=== PATIENT | female | born 1960 | race Caucasian/White ===

== ENCOUNTER 2022-02-23 10:45 | Observation (INO) | payer OTHER ==
[2022-02-23] MEDS ORDERED: Sodium Chloride 0.9% 10 ML Syringe FLUSH PRN (10:53)
[2022-02-23] MEDS ORDERED: Ondansetron 4 MG/2 ML SDV IV PRN (10:53)
[2022-02-23] MEDS ORDERED: Acetaminophen/oxyCODONE 325-5 MG Tab PO PRN (10:53)
[2022-02-23] MEDS ORDERED: Ondansetron 4 MG Tab.DIS PO PRN (10:53)
[2022-02-23] MEDS ORDERED: HYDROmorphone 0.5 MG/0.5 ML Syringe IVPUSH PRN (10:53)
[2022-02-23] MEDS ORDERED: Ketorolac 30 MG/ML SDV IVPUSH PRN (10:53)
[2022-02-23] MEDS: Tamsulosin 0.4 MG Cap.ER PO SCH (12:35)
[2022-02-23] MEDS: Sodium Chloride 0.9% 1,000 ML IV SCH ×2 (12:35→18:26)
[2022-02-24] MEDS: Sodium Chloride 0.9% 1,000 ML IV SCH ×2 (01:10→07:38)
[2022-02-24 07:06] LABS: ANION GAP 9.1 mmol/L (5-15)
[2022-02-24] MEDS: Tamsulosin 0.4 MG Cap.ER PO SCH (08:09)
[2022-02-24 09:53] VITALS: BP 145/74; PULSE 74
== END 2022-02-24 13:08 | disposition home or self-care (01) ==
LOC: VM.MS 10:47
PROVIDERS: ADMIT Nurse Practitioner Family; ATTEND Nurse Practitioner Family
DX: N20.0 Calculus of kidney (principal); R10.9 Unspecified abdominal pain; I10 Essential (primary) hypertension; F41.9 Anxiety disorder, unspecified; D50.9 Iron deficiency anemia, unspecified; I72.2 Aneurysm of renal artery; Z79.899 Other long term (current) drug therapy; Z98.890 Other specified postprocedural states
CPT/HCPCS: 36415; 80053; 85027; 96361; 96374; A9270-GY; G0378; G0379; J1885; J7030

== ENCOUNTER 2022-08-05 07:38 | Day surgery (SDC) | payer OTHER ==
[~2022-08-05 07:38] MED LIST: Lactated Ringers 1,000 ML IV SCH; Sodium Chloride 0.9% 10 ML Syringe FLUSH PRN
[2022-08-05] MEDS ORDERED: Propofol 200 MG/20 ML SDV ONE (10:16)
[2022-08-05] MEDS ORDERED: fentaNYL 100 MCG/2 ML SDV ONE (10:16)
[2022-08-05 11:44] VITALS: BP 157/78; PULSE 65
== END 2022-08-05 12:35 | disposition home or self-care (01) ==
LOC: VM.SDS 07:38
PROVIDERS: ATTEND Family Medicine
DX: Z12.11 Encounter for screening for malignant neoplasm of colon (principal); K63.5 Polyp of colon; K57.30 Diverticulosis of large intestine without perforation or abscess without bleeding; K63.89 Other specified diseases of intestine; D50.9 Iron deficiency anemia, unspecified; F41.9 Anxiety disorder, unspecified; I10 Essential (primary) hypertension; K21.9 Gastro-esophageal reflux disease without esophagitis; I72.2 Aneurysm of renal artery; E66.9 Obesity, unspecified; Z90.710 Acquired absence of both cervix and uterus; Z87.19 Personal history of other diseases of the digestive system; Z83.79 Family history of other diseases of the digestive system; Z98.890 Other specified postprocedural states; Z79.899 Other long term (current) drug therapy; Z68.31 Body mass index [BMI] 31.0-31.9, adult
CPT/HCPCS: 00812; J2704; J3010; J7120

== ENCOUNTER 2023-06-14 12:26 | Emergency (ER) | payer OTHER ==
[2023-06-14 12:52] LABS: BASOPHILS PERCENT AUTO 0.5 % (0.2-1.2); EOSINOPHILS ABSOLUTE AUTO 0.1 x10^3/uL (0.0-0.5); HEMATOCRIT 46.5 % (33.0-47.0); IMMATURE GRAN ABSOLUTE AUTO 0.01 x10^3/uL (0.00-0.07); LYMPHOCYTES ABSOLUTE AUTO 1.8 x10^3/uL (1.0-4.8); LYMPHOCYTES PERCENT AUTO 31.7 % (25.0-50.0); MEAN CORPUSCULAR HEMOGLOBIN 32.1 pg (26.0-32.0); MEAN CORPUSCULAR HGB CONC 34.4 g/dL (32.0-36.0); MEAN CORPUSCULAR VOLUME 93.2 fL (78.0-93.0); MONOCYTES ABSOLUTE AUTO 0.7 x10^3/uL (0.0-0.8); MONOCYTES PERCENT AUTO 11.5 % (2.0-11.0); NEUTROPHILS ABSOLUTE AUTO 3.1 x10^3/uL (1.8-7.7); NEUTROPHILS PERCENT AUTO 54.1 % (50.0-80.0); PLATELET COUNT,PLT 215 x10^3/uL (130-400); RED BLOOD CELL COUNT 4.99 x10^6/uL (4.00-5.50); WHITE BLOOD CELL COUNT,WBC 5.6 x10^3/uL (4.0-10.0)
[2023-06-14 13:14] LABS: A/G RATIO 1.03; ALANINE AMINOTRANSFERASE,ALT 21 U/L (14-59); ALBUMIN 3.9 g/dL (3.4-5.0); ALKALINE PHOSPHATASE 118 U/L (46-116); ASPARTATE AMNIOTRANSFERASE,AST 22 U/L (15-37); BILIRUBIN TOTAL 0.6 mg/dL (0.2-1.0); BLOOD UREA NITROGEN,BUN 15 mg/dL (7-18); CALCIUM 9.5 mg/dL (8.5-10.1); CARBON DIOXIDE,CO2 27 mmol/L (21-32); CHLORIDE,CL 102 mmol/L (98-107); CREATININE 0.7 mg/dL (0.55-1.02); GLUCOSE RANDOM 97 mg/dL (70-99); POTASSIUM,K 3.4 mmol/L (3.5-5.1); PROTEIN TOTAL,TP 7.7 g/dL (6.4-8.2); SODIUM,NA 141 mmol/L (136-145)
[2023-06-14 13:15] LABS: ANION GAP 15.4 mmol/L (5-15); ESTIMATED GFR 98 mL/min (>=60)
[2023-06-14] MEDS: Ketorolac 30 MG/ML SDV IM ONE (15:12)
[2023-06-14] MEDS: Cyclobenzaprine 10 MG Tab PO ONE (15:13)
[2023-06-14 15:28] LABS: APPEARANCE,URINE CLEAR (CLEAR); BILIRUBIN,URINE NEGATIVE (NEGATIVE); COLOR,URINE YELLOW (YELLOW); GLUCOSE,URINE NEGATIVE (NEGATIVE); KETONES,URINE NEGATIVE (NEGATIVE); LEUKOCYTE ESTERASE,URINE NEGATIVE (NEGATIVE); NITRITE,URINE NEGATIVE (NEGATIVE); OCCULT BLOOD,URINE SMALL (NEGATIVE); PH,URINE 7.5 (5.0-8.0); PROTEIN,URINE NEGATIVE (NEGATIVE); UROBILINOGEN,URINE 0.2 EU/dL (0.2)
[2023-06-14 15:42] LABS: BACTERIA,URINE RARE /HPF (NOT SEEN); RBC,URINE 0-5 /HPF (NOT SEEN); SQUAMOUS EPITHELIAL CELLS,UR OCCASIONAL /HPF (NOT SEEN); WBC,URINE 0-5 /HPF (NOT SEEN)
[2023-06-14 20:18] VITALS: BP 168/79; PULSE 85
== END 2023-06-14 16:07 | disposition home or self-care (01) ==
LOC: VM.ED 12:26
DX: R55 Syncope and collapse (principal); I10 Essential (primary) hypertension; Z90.710 Acquired absence of both cervix and uterus
CPT/HCPCS: 36415; 70450; 72125; 72128; 80053; 81001; 84484; 85025; 93005; 93010; 96372; 99284; A9270-GY; J1885